=== PATIENT | female | born 1955 | race Caucasian/White ===

== ENCOUNTER → 2019-01-05 | Emergency (ER) | payer BC ==
[~2019-01-05] VITALS: Ht 157.5 cm; Wt 47.1 kg
[2019-01-05 10:35] VITALS: Ht 157.5 cm; Wt 47.1 kg
--- NOTE | 2019-01-05 13:03 | ERD ---
ER Documentation Chief Complaint Chief Complaint PT reporting flashes on light and floaters to R eyes since 9pm yesterday HPI 63-year-old woman presents the ED reporting floaters and a flash of light in her right eye and 9 PM last night and this morning. She denies any injury or trauma to her right eye. She denies any medical issues with her eyes and states that she wears glasses for nearsightedness. She has an senior graduate advisor that she follows up with at least once a year on a regular basis. Today she reports floaters are present in her right eye and come and go. She denies any loss of vision or changes in visual acuity. She denies any pain in her eyes or discharge. She states the left eye is fine. She reports having similar events occasionally when she gets migraine headaches but this time it was a little worse which she called the nurse hotline number and they told her to come to the emergency department ROS All systems reviewed and are negative except as per history of present illness. Allergies Allergies: Uncoded Allergies: SULFA (Allergy, Unknown, 01/05/19) PMhx/Soc Medical and Surgical Hx: pt denies Medical Hx, pt denies Surgical Hx Hx Alcohol Use: No Hx Substance Use: No Hx Tobacco Use: No Smoking Status: Never smoker FmHx Family History: No diabetes Physical Exam Vitals Vital Signs Date Temp Pulse Resp B/P (MAP) Pulse Ox O2 O2 Flow FiO2 Time Delivery Rate 01/05/19 99.3 101 18 109/58 96 10:35 (75) Physical Exam Const: No acute distress Head: Atraumatic Eyes: Normal Conjunctiva, normal visual acuity, PERRLA, non tender, not hard, no obvious deformities ENT: Normal External Ears, Nose and Mouth. Neck: Full range of motion. no tender Resp: Clear to auscultation bilaterally Cardio: Regular rate and rhythm, Abd: Soft, non tender, non distended. Neur: Awake and alert Psych: Normal Mood and Affect Procedures/MDM ED COURSE: The patient was stable throughout ED course. I kept the patient informed of laboratory and diagnostic imaging results throughout the ED course. DIAGNOSTIC IMAGING: Read by radiologist. PROCEDURE: Ultrasound left thigh CLINICAL INDICATION: Floaters TECHNIQUE: Sonographic evaluation of the left thigh was performed with rangel scale and color imaging. Images were reviewed on a high-resolution PACS wo [employer]. COMPARISON: None available FINDINGS: No evidence of retinal detachment. IMPRESSION: No evidence of retinal detachment. RPTAT: EE Physician Marielle Date Time Electronically viewed and signed by rubina Rivers Physician on 01/05/2019 12:58 MEDICATIONS GIVEN: [None.] MEDICAL DECISION MAKING: Patient is a 63-year-old female presenting with floaters in her right eye x1 day that come and go. She denies any eye trauma or injury or past medical problems with the eye. She wears glasses for nearsightedness and sees senior graduate advisor on an annual basis. She denies any other past medical history states she is healthy overall. She called the nurse hotline for the floaters and they recommended that she come to the ED for work-up for retinal detachment. Ultrasound imaging was done which was negative for retinal detachment. Patient was told to follow- up with her eye doctor in the next 1 to 2 days which she agreed upon. I have low suspicion for retinal detachment, glaucoma, retinal tear, foreign body in the eye, corneal abrasion, herpes of the eye. Vital signs were reviewed. Patient is afebrile. Patient was not hypoxic. Patient was hemodynamically stable. Patient was told to follow up with primary care for further care and management. PRESCRIPTION: none DISCHARGE: At this time, patient is stable for discharge and outpatient management. I have instructed the patient to follow-up with his/her primary care physician in 1-2 days. I have discussed with the patient the possibility of needing to see a specialist for further workup and imaging studies if symptoms persist. I have instructed the patient to promptly return to the ER for any new or worsening symptoms including increased pain, fever, nausea, vomiting, weakness or LOC. The patient expressed understanding of and agreement with this plan. All questions were answered. Home care instructions were provided. Disclaimer: Inadvertent spelling and grammatical errors are likely due to EHR/dictation software use and do not reflect on the overall quality of patient care. Also, please note that the electronic time recorded on this note does not necessarily reflect the actual time of the patient encounter. Departure Diagnosis: Primary Impression: Floaters Laterality: right Qualified Codes: H43.391 - Other vitreous opacities, right eye Condition: Fair Patient Instructions: Retinal Detachment Referrals: [facility] YOU HAVE RECEIVED A MEDICAL SCREENING EXAM AND THE RESULTS INDICATE THAT YOU DO NOT HAVE A CONDITION THAT REQUIRES URGENT TREATMENT IN THE EMERGENCY DEPARTMENT. FURTHER EVALUATION AND TREATMENT OF YOUR CONDITION CAN WAIT UNTIL YOU ARE SEEN IN YOUR DOCTORS OFFICE WITHIN THE NEXT 1-2 DAYS. IT IS YOUR RESPONSIBILITY TO MAKE AN APPOINTMENT FOR FOLOW-UP CARE. IF YOU HAVE A PRIMARY DOCTOR --you should call your primary doctor and schedule an appointment IF YOU DO NOT HAVE A PRIMARY DOCTOR YOU CAN CALL OUR PHYSICIAN REFERRAL HOTLINE AT IF YOU CAN NOT AFFORD TO SEE A PHYSICIAN YOU CAN CHOSE FROM THE FOLLOWING [facility] [address] [facility] [place] [address] [facility] [facility] [address] [facility] [address] [facility] [address] [facility] [facility] [address] [facility] [facility]. [facility] YOU HAVE RECEIVED A MEDICAL SCREENING EXAM AND THE RESULTS INDICATE THAT YOU DO NOT HAVE A CONDITION THAT REQUIRES URGENT TREATMENT IN THE EMERGENCY DEPARTMENT. FURTHER EVALUATION AND TREATMENT OF YOUR CONDITION CAN WAIT UNTIL YOU ARE SEEN IN YOUR DOCTORS OFFICE WITHIN THE NEXT 1-2 DAYS. IT IS YOUR RESPONSIBILITY TO MAKE AN APPOINTMENT FOR FOLOW-UP CARE. IF YOU HAVE A PRIMARY DOCTOR --you should call your primary doctor and schedule and appointment IF YOU DO NOT HAVE A PRIMARY DOCTOR YOU CAN CALL OUR PHYSICIAN REFERRAL HOTLINE AT . IF YOU CAN NOT AFFORD TO SEE A PHYSICIAN YOU CAN CHOSE FROM THE FOLLOWING [facility] INSTITUTIONS: [facility] [address] [place] [address] [facility] [address] [place] [address] [facility] [address] [place] [address] Additional Instructions: F/U with your eye doctor in the next 1-2 days Call your primary care doctor TOMORROW for an appointment during the next 1-2 days.See the doctor sooner or return here if your condition worsens before your appointment time. TSERING AMANDA PA-C Jan 05, 2019 13:03
[2019-01-05 13:10] VITALS: BP 118/58; PULSE 72; RESP 18
== END | disposition home or self-care (01) ==
LOC: FTE 10:29
DX: H43.391 Other vitreous opacities, right eye (principal)
CPT/HCPCS: 76536